=== PATIENT | male | born 1990 | race Caucasian/White ===

== ENCOUNTER 2017-08-27 08:59 | Emergency (ER) | payer OTHER, BC ==
[~2017-08-27] VITALS: Ht 180.3 cm; Wt 81.6 kg
== END 2017-08-27 09:49 | disposition home or self-care (01) ==
LOC: ED 08:59
PROC: 0HQFXZZ Repair Right Hand Skin, External Approach (ICD-10-PCS; principal; 2017-08-27)
DX: S61.411A Laceration without foreign body of right hand, initial encounter (principal); Z23 Encounter for immunization; Z88.0 Allergy status to penicillin; W26.8XXA Contact with other sharp object(s), not elsewhere classified, initial encounter; Y99.0 Civilian activity done for income or pay
CPT/HCPCS: 12001; 90471; 90715; 99282